=== PATIENT | female | born 1975 | race Two or more races ===

== ENCOUNTER 2017-03-22 08:30 | Inpatient (IN) | payer OTHER ==
[~2017-03-22] VITALS: Ht 167.6 cm; Wt 68.0 kg
[~2017-03-22 08:30] MED LIST: CLONAZEPAM0.5 MG PO; PYRIDIUM200 MG PO; TUSSI PRES-B L120 M1 PO
[2017-03-22] MEDS ORDERED: ANTICONCEPTIVOS PO (10:23)
[2017-03-25] MEDS ORDERED: COLACE100 MG PO (13:56)
[2017-03-25] MEDS ORDERED: AMOX1TAB12 PO (13:56)
[2017-03-25] MEDS ORDERED: CLONAZEPAM1 MG PO (13:56)
== END 2017-03-26 14:48 | disposition home or self-care (01) | DRG 520 ==
LOC: PED 03-25 05:35 → O/R 03-25 05:35 → SURH 03-25 08:30 → PED 03-25 14:10
PROVIDERS: Orthopaedic Surgery Orthopaedic Surgery of the Spine
PROC: 0SB40ZZ Excision of Lumbosacral Disc, Open Approach (ICD-10-PCS; 2017-03-25)
PROC: 00NY0ZZ Release Lumbar Spinal Cord, Open Approach (ICD-10-PCS; principal; 2017-03-25 13:30)
DX: M51.16 Intervertebral disc disorders with radiculopathy, lumbar region (principal); M47.27 Other spondylosis with radiculopathy, lumbosacral region